=== PATIENT | male | born 2000 | race Caucasian/White ===

== ENCOUNTER 2018-04-20 20:59 | Emergency (ER) | payer OTHER ==
[2018-04-20] MEDS ORDERED: NORMAL SALINE 1000 ML 1,000 ML IV ONE ×2 (21:30→23:10)
[2018-04-20] MEDS ORDERED: ONDANSETRON HCL INJ/PF 4 MG/2 ML SDV IV ONE (21:30)
[2018-04-20 22:19] LABS: ABSOLUTE EOSINOPHILS # (AUTO) 0.2 10^3/uL (0.0-0.6); ABSOLUTE LYMPHOCYTES (AUTO) 0.7 10^3/uL (0.5-4.7); ABSOLUTE NEUT (AUTO) 12.3 10^3/uL (1.7-8.2); BASOPHILS % (AUTO) 0.1 % (0-2); EOSINOPHILS % (AUTO) 1.2 % (0-6); HEMATOCRIT 48.8 % (37.9-51.0); HEMOGLOBIN 17.2 g/dL (13.5-17.0); LYMPHOCYTES % (AUTO) 5.2 % (13-45); MEAN CORPUSCULAR HGB CONC 35.3 g/dL (32.0-36.0); MEAN CORPUSCULAR VOLUME 85 fl (80-97); MONOCYTES % (AUTO) 7.2 % (3-13); PLATELET COUNT 197 10^3/uL (150-450); RED BLOOD COUNT 5.75 10^6/uL (4.35-5.55); RED CELL DISTRIBUTION WIDTH 13.4 % (11.5-14.0); SEGMENTED NEUTROPHILS % (AUTO) 86.3 % (42-78); TOTAL CELLS COUNTED % (AUTO) 100 %; WHITE BLOOD COUNT 14.3 10^3/uL (4.0-10.5)
[2018-04-20 22:26] LABS: ALANINE AMINOTRANSFERASE 24 U/L (21-72); ALBUMIN 5.3 g/dL (3.5-5.0); ALKALINE PHOSPHATASE 80 U/L (38-126); ANION GAP 15 (5-19); ASPARTATE AMINO TRANSFERASE 29 U/L (17-59); BILIRUBIN,DIRECT 0.2 mg/dL (0.0-0.4); BILIRUBIN,TOTAL 1.8 mg/dL (0.2-1.3); BLOOD UREA NITROGEN 21 mg/dL (7-20); CALCIUM 10.5 mg/dL (8.4-10.2); CARBON DIOXIDE 27 mmol/L (22-30); CHLORIDE 99 mmol/L (98-107); GLUCOSE 128 mg/dL (75-110); POTASSIUM 4.7 mmol/L (3.6-5.0); TOTAL PROTEIN 8.6 g/dL (6.3-8.2)
[2018-04-20 23:09] LABS: APPEARANCE,URINE SLIGHTLY-CLOUDY; BILIRUBIN,URINE NEGATIVE (NEGATIVE); COLOR,URINE YELLOW; GLUCOSE, URINE NEGATIVE (NEGATIVE); KETONES,URINE 80 mg/dL (NEGATIVE); LEUKOCYTE ESTERASE,URINE NEGATIVE (NEGATIVE); NITRITE,URINE NEGATIVE (NEGATIVE); PROTEIN,URINE 100 mg/dL (NEGATIVE); URINE SPECIFIC GRAVITY 1.023; UROBILINOGEN,URINE NEGATIVE mg/dL (<2.0)
--- NOTE | 2018-04-20 23:11 | ER Document Report ---
ED GI/ - General Chief Complaint: Vomiting/Diarrhea Stated Complaint: VOMITING Time Seen by Provider: 04/20/18 23:02 Notes: Patient is a 18-year-old male that comes to the emergency department for chief complaint of persistent vomiting and diarrhea today. He states on the way over here he vomited 4 more times. Denies blood in stool or vomit, denies fever, denies any obvious sick contacts, denies any raw food or recent travel. Denies recent antibiotics. Past medical history of hernia repair. He denies any daily medications, denies any diagnosed medical problems, he is active duty. TRAVEL OUTSIDE OF THE [place] IN LAST 30 DAYS: No - Related Data Allergies/Adverse Reactions: No Known Allergies Allergy (Unverified 04/20/18 21:03) Past Medical History - General Information source: Patient - Social History Smoking Status: Never Smoker Chew tobacco use (# tins/day): No Frequency of alcohol use: None Drug Abuse: None Lives with: Family Family History: Reviewed & Not Pertinent Patient has suicidal ideation: No Patient has homicidal ideation: No - Medical History Medical History: Negative Renal/ Medical History: Denies: Hx Peritoneal Dialysis Past Surgical History: Reports: Hx Abdominal Surgery - hernia - Immunizations Immunizations up to date: Yes Hx Diphtheria, Pertussis, Tetanus Vaccination: Yes Review of Systems - Review of Systems Constitutional: No symptoms reported EENT: No symptoms reported Cardiovascular: No symptoms reported Respiratory: No symptoms reported Gastrointestinal: See HPI Genitourinary: No symptoms reported Male Genitourinary: No symptoms reported Musculoskeletal: No symptoms reported Skin: No symptoms reported Hematologic/Lymphatic: No symptoms reported Neurological/Psychological: No symptoms reported Physical Exam - Vital signs Vitals: Temp Pulse Resp BP Pulse Ox 97.5 F 113 H 20 147/96 H 99 04/20/18 21:04 04/20/18 21:04 04/20/18 21:04 04/20/18 21:04 04/20/18 21:04 - Notes Notes: GENERAL: Alert, interacts well. No acute distress. HEAD: Normocephalic, atraumatic. EYES: Pupils equal, round, and reactive to light. Extraocular movements intact. ENT: Oral mucosa moist, tongue midline. Oropharynx unremarkable. Airway patent. Nares patent, no nasal septal hematoma, TM's intact. NECK: Full range of motion. Supple. Trachea midline. LUNGS: Clear to auscultation bilaterally, no wheezes, rales, or rhonchi. No respiratory distress. HEART: Regular rate and rhythm. No murmur ABDOMEN: Soft, non-tender. Non-distended. Bowel sounds present in all 4 quadrants. GENITOURINARY: Deferred EXTREMITIES: Moves all 4 extremities spontaneously. No edema, normal radial and dorsalis pedis pulses bilaterally. No cyanosis. BACK: no cervical, thoracic, lumbar midline tenderness. No saddle anesthesia, normal distal neurovascular exam. NEUROLOGICAL: Alert and oriented x3. Normal speech. [cranial nerves II through XII grossly intact]. PSYCH: Normal affect, normal mood. SKIN: Warm, dry, normal turgor. No rashes or lesions noted. Course - Re-evaluation Re-evalutation: Patient already feeling much better on my evaluation, has already had Zofran and initial IV fluids going. He is not tachycardic on my exam. His abdomen is completely nontender. His physical examination is unremarkable otherwise, he is healthy and well-appearing. Requesting for p.o. He will be provided with this with Pepcid and Phenergan. CBC shows leukocytosis, elevated hemoglobin, patient with elevated BUN, elevated specific gravity, lots of ketones in the urine. He was initially tachycardic. Appears to be very dehydrated. Patient was given 2 L of normal saline bolus. He tolerated p.o. without any difficulty. He was only able to give a small amount of stool afterwards but this was cultured. Based on his improvement in symptoms I do suspect this is more likely viral. He was provided with medica tions at home for nausea and vomiting, discussed hydration, follow-up, expectations, return precautions in detail with patient and significant other. They state satisfaction and agreement with plan. Stable at time of discharge. - Vital Signs Vital signs: Temp Pulse Resp BP Pulse Ox 98.6 F 84 16 131/76 H 98 04/21/18 02:03 04/21/18 02:03 04/21/18 02:03 04/21/18 02:03 04/21/18 02:03 - Laboratory Result Diagrams: 04/20/18 22:03 04/20/18 22:03 Laboratory results interpreted by me: 04/20/18 04/20/18 04/20/18 22:03 22:03 22:55 WBC 14.3 H RBC 5.75 H Hgb 17.2 H Seg Neutrophils % 86.3 H Lymphocytes % 5.2 L Absolute Neutrophils 12.3 H BUN 21 H Glucose 128 H Calcium 10.5 H Total Bilirubin 1.8 H Total Protein 8.6 H Albumin 5.3 H Urine Protein 100 H Urine Ketones 80 H Discharge - Discharge Clinical Impression: Vomiting and diarrhea, Dehydration Condition: Stable Disposition: HOME, SELF-CARE Additional Instructions: Your workup shows dehydration, nonspecific otherwise. This is probably viral, this should resolve on its own with time. It is also likely contagious, perform handwashing and avoid people exposure if possible until symptoms resolve. Take Zofran for nausea, drink plenty of fluids, start with bland food and slowly progress. Return if you worsen including uncontrolled vomiting, passing out, severe pain in your abdomen, developing fever, or any other concerning or worsening symptoms. Prescriptions: Ondansetron [Zofran Odt 4 mg Tablet] 1 - 2 tab PO Q4H PRN #15 tab.rapdis PRN Reason: For Nausea/Vomiting Forms: Return to Work
[2018-04-21] MEDS ORDERED: PROMETHAZINE HCL 25 MG TABLET PO ONE (00:44)
[2018-04-21] MEDS ORDERED: FAMOTIDINE 20 MG TABLET PO ONE (00:44)
[2018-04-21 02:03] VITALS: BP 131/76
== END 2018-04-21 02:03 | disposition home or self-care (01) ==
LOC: ER 20:59
DX: R11.10 Vomiting, unspecified (principal); R19.7 Diarrhea, unspecified; E86.0 Dehydration; D72.829 Elevated white blood cell count, unspecified
CPT/HCPCS: 99284; 96361; 96374; 36415; 87045; 87205; 85025; 80053; 81001; J2405; J7030